=== PATIENT | female | born 1940 | race Asian ===

== ENCOUNTER 2018-08-03 20:51 | Emergency (ER) | payer OTHER ==
[~2018-08-03] VITALS: Ht 152.4 cm; Wt 52.2 kg
[2018-08-03 20:58] VITALS: BP_SYST 218
[2018-08-03] MEDS ORDERED: ENALAPRILAT DIHYDRATE 1.25 MG/ML VIAL IVP ONE ×2 (21:15→22:00)
[2018-08-03 21:40] LABS: BASOPHILS # (AUTO) 0.1 K/uL (0.0-0.2); BASOPHILS % (AUTO) 1.8 % (0.0-2.0); EOSINOPHILS # (AUTO) 0.3 K/uL (0.0-0.4); EOSINOPHILS % (AUTO) 4.5 % (0.0-4.0); HEMATOCRIT 38.5 % (36-48); HEMOGLOBIN 12.4 g/dL (12.0-16.0); LYMPHOCYTES # (AUTO) 3.5 K/uL (1.0-5.5); LYMPHOCYTES % (AUTO) 48.3 % (20.5-51.5); MEAN CORPUSCULAR HEMOGLOBIN 32 pg (27-31); MEAN CORPUSCULAR HGB CONC 32 % (32-36); MEAN CORPUSCULAR VOLUME 101 fL (79.0-98.0); MONOCYTES # (AUTO) 0.9 K/uL (0.0-1.0); MONOCYTES % (AUTO) 11.9 % (1.7-9.3); NEUTROPHILS # (AUTO) 2.5 K/uL (1.8-7.7); NEUTROPHILS % (AUTO) 33.5 % (40.0-70.0); PLATELET COUNT (AUTO) 237 K/uL (130-430); RED BLOOD CELL COUNT(AUTO) 3.83 MIL/uL (4.2-6.2); WHITE BLOOD COUNT (AUTO) 7.3 K/uL (4.8-10.8)
[2018-08-03 21:47] LABS: ANION GAP 16 (5-15); CALCIUM 8.8 mg/dL (8.4-11.0); CHLORIDE 98 mmol/L (98-107); CREATININE 0.75 mg/dL (0.55-1.30); GLUCOSE 171 mg/dL (70-99); SODIUM SERUM 139 mmol/L (136-145); UREA NITROGEN, BLOOD 3 mg/dL (8-21)
[2018-08-03 21:53] LABS: ALANINE AMINOTRANSFERASE 37 U/L (12-78); ALBUMIN 3.4 g/dL (3.4-4.8); ALCOHOL, BLOOD 233 mg/dL (<10); ASPARTATE AMINOTRANSFERASE 90 U/L (10-37); PROTHROMBIN TIME 10.4 SECS (9.5-12.5); TOTAL BILIRUBIN 0.7 mg/dL (0.0-1.0)
[2018-08-03] MEDS ORDERED: ENALAPRILAT DIHYDRATE 1.25 MG/ML VIAL ONE (21:55)
[2018-08-03 21:57] LABS: POTASSIUM 2.4 mmol/L (3.5-5.1)
[2018-08-03] MEDS ORDERED: niCARdipine 25 MG in D5W 240 ML IV PRN (22:00)
[2018-08-03] MEDS ORDERED: KCL 20 mEq in 100 mL (PREMIX) 100 ML IV ONE (22:00)
[2018-08-03] MEDS ORDERED: niCARdipine 2.5 MG/ML, 10 ML VIAL (CARDENE) IV ONE (22:06)
[2018-08-03 22:21] LABS: ACETAMINOPHEN < 1 ug/mL (1-30)
[2018-08-03 22:35] VITALS: BP_SYST 162
== END 2018-08-03 22:40 | disposition short-term general hospital (02) ==
LOC: SED 20:51
DX: S06.300A Unspecified focal traumatic brain injury without loss of consciousness, initial encounter (principal); I16.0 Hypertensive urgency; F10.10 Alcohol abuse, uncomplicated; I10 Essential (primary) hypertension; W19.XXXA Unspecified fall, initial encounter; Y93.89 Activity, other specified; Y92.89 Other specified places as the place of occurrence of the external cause; Y99.8 Other external cause status
CPT/HCPCS: 36415; 70450; 71045; 80053; 84484; 85025; 85610; 85730; 93005; 96365; 96368; 96375; 99291; G0480; G0482; J3480